=== PATIENT | female | born 1950 | race African-American/Black ===

== ENCOUNTER → 2017-12-16 | Outpatient (CLI) | payer MEDICARE | END | disposition home or self-care (01) | LOC: KCIC DEXA 13:13 | DX: Z13.820 Encounter for screening for osteoporosis (principal); M85.88 Other specified disorders of bone density and structure, other site; Z78.0 Asymptomatic menopausal state | CPT/HCPCS: 77080 ==

== ENCOUNTER → 2019-04-30 | Outpatient (CLI) | payer MEDICARE, BC ==
[2017-10-23 15:00] VITALS: BP 158/74
--- NOTE | 2019-04-30 17:01 | KCIC ---
Examination: 3 views of the right ankle HISTORY: History of swelling, redness COMPARISON: None available. Findings/ impression: The alignment of the ankle mortise grossly appears unremarkable. Diffuse soft tissue swelling identified about the ankle joint and in the dorsal aspect of the midfoot likely soft tissue swelling/edema or infection. Lucency identified in the cuboid bone on the lateral view probably artifactual as it is not visualized on the oblique view. If there is clinical suspicion of osteomyelitis, recommend MRI for further evaluation. Electronically signed by: Jonathan Caceres MD (04/30/2019 4:58 PM) [place] [id number]
== END | disposition home or self-care (01) ==
LOC: KCIC 11:56
PROVIDERS: ATTEND Family Medicine
DX: T63.301A Toxic effect of unspecified spider venom, accidental (unintentional), initial encounter (principal); L03.115 Cellulitis of right lower limb; M25.471 Effusion, right ankle; Y92.89 Other specified places as the place of occurrence of the external cause
CPT/HCPCS: 73610

== ENCOUNTER → 2019-07-13 | Outpatient (CLI) | payer BC, MEDICARE ==
[2019-05-19 07:00] VITALS: BP 117/61
[~2019-07-13] MED LIST: AMLO2.5T5 PO; ASPI-630 PO; ATOR40TA59 PO; LISI-130 PO; METO-239 PO
--- NOTE | 2019-07-13 15:15 | CARD ---
MR#: [id number] Date of Study: 07/13/2019 Ordering Physician: AUGUSTIN FOOTE, Referring Physician: AUGUSTIN FOOTE Tech: Veronica Rangel RDCS APPROVED REPORT EXAM: Two-dimensional and M-mode echocardiogram with Doppler and color Doppler. Other Information Quality : Technically LimitedHR: 80bpm Rhythm : NSRTechnically limited study due to body habitus. INDICATION Mitral Valve Disease 2D DIMENSIONS RVDd3.5 (2.9-3.5cm)Left Atrium(2D)4.0 (1.6-4.0cm) IVSd1.6 (0.7-1.1cm)Aortic Root(2D)2.7 (2.0-3.7cm) LVDd4.6 (3.9-5.9cm)LVOT Diameter2.1 (1.8-2.4cm) PWd1.4 (0.7-1.1cm)LVDs2.8 (2.5-4.0cm) FS (%) 39.8 %SV68.1 ml LVEF(%)70.5 (>50%) M-Mode DIMENSIONS Left Atrium(MM)4.53 (2.5-4.0cm)Aortic Root3.11 (2.2-3.7cm) Aortic Valve AoV Peak Monster.313.1cm/sAoV VTI55.0cm AO Peak GR.39.2mmHgLVOT Peak Monster.108.6cm/s AO Mean GR.21mmHgAVA (VMAX)1.20cm2 JACK (VTI)1.40cm2 Mitral Valve MV E Hcxwntkt387.6cm/sMV E Peak Gr.14mmHg MV DECEL [id number] A Qrfoiexs604.7cm/s MV E Mean Gr.5mmHgE/A Ratio0.6 LEFT VENTRICLE The left ventricle is normal size. There is mild concentric left ventricular hypertrophy. The left ve ntricular systolic function is normal and the ejection fraction is within normal range. The Ejection Fraction is 60-65%. There is normal LV segmental wall motion. Transmitral Doppler flow pattern is abn ormal. RIGHT VENTRICLE The right ventricle is normal size. There is normal right ventricular wall thickness. The right ventr icular systolic function is normal. ATRIA The left atrium is mildly dilated. The right atrium size is normal. The interatrial septum is intact with no evidence for an atrial septal defect or patent foramen ovale as noted on 2-D or Doppler imagi ng. AORTIC VALVE The aortic valve is trileaflet. The aortic valve is moderately to severely calcified. Doppler and Col or Flow revealed no significant aortic regurgitation. There is moderate valvular aortic stenosis. Barak culated aortic valve area is 1.2 cm2 with maximum pressure gradient of 39 mmHg and mean pressure grad ient of 21 mmHg. There is no aortic valvular vegetation. MITRAL VALVE Mitral annular calcification is moderate to severe. There is no evidence of mitral valve prolapse. Th ere is moderate mitral valve stenosis. Calculated mitral valve area is 1.5 cm2 with maximum pressure gradient of 14 mmHg and mean pressure gradient of 6 mmHg. Doppler and Color Flow revealed no mitral v alve regurgitation noted. TRICUSPID VALVE The tricuspid valve is not well visualized. Doppler and Color Flow revealed no tricuspid valve regurg itation noted. There is no tricuspid valve prolapse or vegetation. There is no tricuspid valve stenos is. PULMONIC VALVE The pulmonic valve is not well visualized. GREAT VESSELS The aortic root is normal in size. The ascending aorta is normal in size. The IVC is normal in size a nd collapses >50% with inspiration. PERICARDIAL EFFUSION There is no evidence of significant pericardial effusion. Critical Notification Critical Value: No <Conclusion> The left ventricle is normal size. The left ventricular systolic function is normal and the ejection fraction is within normal range. The Ejection Fraction is 60-65%. There is mild concentric left ventricular hypertrophy. The aortic valve is moderately to severely calcified. There is moderate valvular aortic stenosis. Calculated aortic valve area is 1.2 cm2 with maximum pressure gradient of 39 mmHg and mean pressure g radient of 21 mmHg. Doppler and Color Flow revealed no significant aortic regurgitation. There is moderate mitral valve stenosis. Calculated mitral valve area is 1.5 cm2 with maximum pressure gradient of 14 mmHg and mean pressure g radient of 6 mmHg. Doppler and Color Flow revealed no mitral valve regurgitation noted. Doppler and Color Flow revealed no tricuspid valve regurgitation noted. Signed by : Sp Coehn MD Electronically Approved : 07/13/2019 15:15:14
== END | disposition home or self-care (01) ==
LOC: ECHO 13:53
PROVIDERS: ATTEND Family Medicine
DX: I05.0 Rheumatic mitral stenosis (principal); I35.0 Nonrheumatic aortic (valve) stenosis
CPT/HCPCS: 93306